=== PATIENT | male | born 1995 | race African-American/Black ===

== ENCOUNTER → 2017-09-17 | Outpatient (CLI) | payer MEDICARE, OTHER ==
[2017-09-17 09:44] LABS: INR 1.1 (<1.2); Partial Thromboplastin Time 24.5 sec (22.0-30.0); Prothrombin Time 10.9 sec (9.0-12.0)
[2017-09-17 09:58] LABS: Albumin 4.3 g/dL (3.5-5.0); Bilirubin, Delta 0.2 mg/dL (0.0-0.2); Bilirubin,Unconjugated 0.2 mg/dL (0.0-1.1); Total Bilirubin 0.4 mg/dL (0.2-1.3); Total Protein 7.1 g/dL (6.3-8.2)
[2017-09-20 12:57] LABS: Liver/Kidney Microsome Antibod 0.7 UNITS (<=20)
== END | disposition home or self-care (01) ==
LOC: LABWHC1 09:04
PROVIDERS: ATTEND Physician Assistant
DX: R74.8 Abnormal levels of other serum enzymes (principal)
CPT/HCPCS: 36415; 80076; 82977; 83516; 85610; 85730; 86038; 86376

== ENCOUNTER 2018-04-20 13:53 | Emergency (ER) | payer MEDICARE, OTHER ==
[2018-04-20 14:05] VITALS: RESP 18; TEMP 98.3
[2018-04-20 15:29] LABS: Amphetamine Screen,Urine Detected (NotDetected); Barbiturate Screen,Urine Not Detected (NotDetected); Benzodiazepines Screen,Urine Detected (NotDetected); Cocaine Screen,Urine Not Detected (NotDetected); Methadone Screen, Urine Not Detected (NotDetected); Opiate Screen,Urine Not Detected (NotDetected); Oxycodone Screen, Urine Not Detected (NotDetected); Phencyclidine Screen,Urine Not Detected (NotDetected); Tricyclic Antidepressant,Urine Not Detected (NotDetected); Urn Cannabinoid Scrn Not Detected (NotDetected)
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
[2018-04-20 16:48] VITALS: BP 140/72; PULSE 87
== END 2018-04-20 16:56 | disposition home or self-care (01) ==
LOC: EEVIPCON 13:53 → EC 13:53
DX: S00.81XA Abrasion of other part of head, initial encounter (principal); R45.4 Irritability and anger; F89 Unspecified disorder of psychological development; J45.909 Unspecified asthma, uncomplicated; F42.9 Obsessive-compulsive disorder, unspecified; F90.9 Attention-deficit hyperactivity disorder, unspecified type; F41.9 Anxiety disorder, unspecified; Z79.899 Other long term (current) drug therapy; Z79.1 Long term (current) use of non-steroidal anti-inflammatories (NSAID); Z88.0 Allergy status to penicillin; X58.XXXA Exposure to other specified factors, initial encounter
CPT/HCPCS: 80306; 99285

== ENCOUNTER 2020-12-05 13:15 | Emergency (ER) | payer MEDICARE, OTHER ==
[2020-12-05 13:36] VITALS: RESP 18; TEMP 99.3
[2020-12-05] MEDS ORDERED: SODIUM CHLORIDE 0.9% 1,000 ML IV STA (13:41)
[2020-12-05 14:05] LABS: Basophils % (A) 1 %; Eosinophils # (A) 0.2 k/uL (0-0.7); Eosinophils % (A) 3 %; HCT 50.3 % (39.0-53.0); HGB 15.9 gm/dL (13.0-17.5); Lymphocytes # (A) 1.9 k/uL (1.0-4.8); Lymphocytes % (A) 31 %; MCH 28.5 pg (25.0-35.0); MCHC 31.6 g/dL (31.0-37.0); MCV 90.3 fL (80.0-100.0); Mean Platelet Volume 7.8; Monocytes # (A) 0.4 k/uL (0-1.0); Monocytes % (A) 7 %; Neutrophils # (A) 3.4 k/uL (1.3-7.7); Neutrophils % (A) 56 %; Platelet Count 228 k/uL (150-450); RBC 5.57 m/uL (4.30-5.90); RDW 13.7 % (11.5-15.5); WBC 6.1 k/uL (3.8-10.6)
[2020-12-05 14:21] LABS: AST 638 U/L (17-59); African American GFR (CKD) >90 (>60 ml/min/1.73 sqM); Albumin 4.7 g/dL (3.5-5.0); Alkaline Phosphatase 184 U/L (38-126); Amylase 62 U/L (30-110); Anion Gap 12 mmol/L; Blood Urea Nitrogen 10 mg/dL (9-20); Calcium 10.2 mg/dL (8.4-10.2); Carbon Dioxide 23 mmol/L (22-30); Chloride 104 mmol/L (98-107); Glucose 96 mg/dL (74-99); Lipase 183 U/L (23-300); Non-African American GFR(CKD) >90 (>60 ml/min/1.73 sqM); Potassium 4.1 mmol/L (3.5-5.1); Sodium 139 mmol/L (137-145); Total Bilirubin 8.8 mg/dL (0.2-1.3); Total Protein 8.6 g/dL (6.3-8.2)
[2020-12-05 14:31] LABS: Appearance,Urine Clear (Clear); Bilirubin,Urine 2+ (Negative); Blood,Urine Negative (Negative); Color,Urine Dark Brown; Glucose,Urine (UA) Negative (Negative); Ketones,Urine Negative (Negative); Leukocyte Esterase,Urine Negative (Negative); Nitrite,Urine Negative (Negative); Protein,Urine Trace (Negative); Specific Gravity,Urine 1.024 (1.001-1.035)
[2020-12-05 14:32] LABS: ALT 1302 U/L (4-49)
[2020-12-05] MEDS ORDERED: HYDROmorphone 0.5 MG/0.5 ML SYRINGE IVP STA (14:50)
[2020-12-05] MEDS ORDERED: ONDANSETRON 4 MG/2 ML VIAL IVP STA (14:50)
--- NOTE | 2020-12-05 15:47 | US ---
EXAMINATION TYPE: US gallbladder DATE OF EXAM: 12/05/2020 COMPARISON: None CLINICAL HISTORY: 25-year-old male right upper quadrant pain FINDINGS: EXAM MEASUREMENTS: Liver Length: 17.3 cm CBD: 0.8 cm Right Kidney: 9.5 x 5.5 x 4.5 cm Pancreas: Tail obscured by overlying bowel gas Liver: Intrahepatic biliary dilation visualized characterized by double ducts Gallbladder: Not adequately visualized, possibly packed with shadowing calculi Evidence for sonographic Brandt's sign: neg CBD: Dilated CHD: Dilated Right Kidney: No hydronephrosis. IMPRESSION: 1. Intrahepatic and extrahepatic biliary ductal dilatation. The bile duct measures up to 8 mm. Correl ate with alkaline phosphatase and bilirubin levels to exclude biliary obstruction. 2. Gallbladder is not adequately visualized. It may be packed with shadowing calculi.
[2020-12-05] MEDS ORDERED: metroNIDAZOLE-NS PMX 500 MG in SALINE 1 100ML.BAG IVPB STA (16:15)
[2020-12-05] MEDS ORDERED: cefTRIAXone IN SWFI 1,000 MG/10 ML SYRINGE IVP STA (16:15)
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
[2020-12-05 16:54] VITALS: BP 153/105; PULSE 92
[2020-12-05 17:05] LABS: INR 1.1 (<1.2); Partial Thromboplastin Time 22.6 sec (22.0-30.0); Prothrombin Time 11.3 sec (9.0-12.0)
== END 2020-12-05 17:12 | disposition other institution (70) ==
LOC: EC 13:15
DX: K80.50 Calculus of bile duct without cholangitis or cholecystitis without obstruction (principal); J45.909 Unspecified asthma, uncomplicated; Z88.0 Allergy status to penicillin; Z79.51 Long term (current) use of inhaled steroids
CPT/HCPCS: 36415; 80053; 82150; 83605; 83690; 85025; 85610; 85730; 81003; 87040; 76705; 99285; 96365; 96375; 96361; J2405; J0696; J1170